=== PATIENT | female | born 1995 | race Caucasian/White ===

== ENCOUNTER 2024-06-25 08:41 | Emergency (ER) | payer OTHER ==
--- NOTE | 2024-06-25 09:49 | EDPHYS ---
Physician Documentation [facility] Name: Kassandra Mejia Age: 28 yrs Sex: Female : 1995 Arrival Date: 06/25/2024 Time: 08:41 Bed 10 Private MD: TERESE Physician Wai Robbins HPI: 06/25 09:45 This 28 yrs old Female presents to ER via Ambulatory with complaints of Sore brigitte Throat. 09:45 The patient presents with sore throat. The patient describes throat pain as constant. brigitte Onset: The symptoms/episode began/occurred 2 day(s) ago. Severity of symptoms: At their worst the symptoms were mild, moderate, in the emergency department the symptoms are unchanged. Modifying factors: The symptoms are alleviated by nothing, the symptoms are aggravated by swallowing. Associated signs and symptoms: The patient has no apparent associated signs or symptoms. The patient has not experienced similar symptoms in the past. 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 - Infectious Disease History:: Denies. - Social history:: Smoking status: Patient reports use of chewing tobacco. Patient denies any tobacco usage or history of. - Family history:: not pertinent. ROS: 09:45 Constitutional: Negative for fever, chills, and weight loss, Eyes: Negative for injury, brigitte pain, redness, and discharge, Neck: Negative for injury, pain, and swelling, Cardiovascular: Negative for chest pain, palpitations, and edema, Respiratory: Negative for shortness of breath, cough, wheezing, and pleuritic chest pain, Abdomen/GI: Negative for abdominal pain, nausea, vomiting, diarrhea, and constipation, Back: Negative for injury and pain, MS/Extremity: Negative for injury and deformity, Skin: Negative for injury, rash, and discoloration, Neuro: Negative for headache, weakness, numbness, tingling, and seizure, 09:45 ENT: Positive for difficulty swallowing, Exam: :45 Constitutional: This is a well developed, well nourished patient who is awake, alert, brigitte and in no acute distress. Head/Face: Normocephalic, atraumatic. Eyes: Pupils equal round and reactive to light, extra-ocular motions intact. Lids and lashes normal. Conjunctiva and sclera are non-icteric and not injected. Cornea within normal limits. Periorbital areas with no swelling, redness, or edema. Neck: Trachea midline, no thyromegaly or masses palpated, and no cervical lymphadenopathy. Supple, full range of motion without nuchal rigidity, or vertebral point tenderness. No Meningismus. Chest/axilla: Normal chest wall appearance and motion. Nontender with no deformity. No lesions are appreciated. Cardiovascular: Regular rate and rhythm with a normal S1 and S2. No gallops, murmurs, or rubs. Normal PMI, no JVD. No pulse deficits. Respiratory: Lungs have equal breath sounds bilaterally, clear to auscultation and percussion. No rales, rhonchi or wheezes noted. No increased work of breathing, no retractions or nasal flaring. Abdomen/GI: Soft, non-tender, with normal bowel sounds. No distension or tympany. No guarding or rebound. No evidence of tenderness throughout. Back: No spinal tenderness. No costovertebral tenderness. Full range of motion. Skin: Warm, dry with normal turgor. Normal color with no rashes, no lesions, and no evidence of cellulitis. MS/ Extremity: Pulses equal, no cyanosis. Neurovascular intact. Full, normal range of motion., bilateral aka Neuro: Awake and alert, GCS 15, oriented to person, place, time, and situation. Cranial nerves II-XII grossly intact. Motor strength 5/5 in all extremities. Sensory grossly intact. Cerebellar exam normal. Normal gait. Psych: Awake, alert, with orientation to person, place and time. Behavior, mood, and affect are within normal limits. 09:45 ENT: Posterior pharynx: Airway: normal, no evidence of obstruction, Tonsils: are normal in appearance, enlarged on the right, enlarged on the left, Uvula: normal, midline, non-edematous, no erythema, swelling, is not appreciated, erythema, is not appreciated, Vital Signs: 09:01 BP 115 / 75; Pulse 98; Resp 17; Temp 97.5; Pulse Ox 100% ; Weight 57.61 kg; Height 5 ll1 ft. 2 in. ; Pain 8/10; 10:15 Pulse 91; Resp 17; Pulse Ox 100% ; ll1 09:01 Body Mass Index 23.23 (57.61 kg, 157.48 cm) [facility] 09:01 Pain Scale: Adult ll1 MDM: 08:47 Medical Screening Exam initiated [facility] 09:47 Differential diagnosis: echovirus infection, sarah-sylvester virus, group A strep brigitte tonsillitis, influenza, laryngitis, pharyngitis, tonsillitis, tracheobronchitis. Data reviewed: vital signs, nurses notes, lab test result(s), Flu: negative. Consideration of Admission/Observation Escalation of care including admission/observation considered. I considered the following discharge prescriptions or medication management in the emergency department Medications were administered in the Emergency Department. See MAR. Test considered but Not performed: Labs: no labs. Care significantly affected by the following chronic conditions: Cancer. 06/25 08:56 Order name: Group A Streptococcus Rapid; Complete Time: 09:42 [facility] 06/25 08:56 Order name: COVID-19 Ag + Flu A+B Ag [facility] 06/25 09:43 Order name: Throat Culture EDMS Administered Medications: No medications were administered Disposition Summary: 06/25/24 09:49 Discharge Ordered Notes: Location: Home [facility] Problem: new [facility] Symptoms: have improved [facility] Condition: Stable brigitte Diagnosis - Acute pharyngitis, unspecified brigitte Followup: [facility] - With: Private Physician - When: 2 - 3 days - Reason: Recheck today's complaints, Continuance of care, Re-evaluation by your physician Discharge Instructions: - Discharge Summary Sheet brigitte - Pharyngitis brigitte - Sore Throat brigitte - Pharyngitis, [place]elk-[id number] [facility] Forms: - Medication Reconciliation Form [facility] - Antibiotic Education brigitte - Prescription Opioid Use brigitte - Patient Portal Instructions [facility] - Leadership Thank You Letter [facility] - Work release form ll1 Prescriptions: - Zithromax Z-Galindo 250 mg Oral Tablet - take 1 tablet ORAL route as directed for 5 days Day 1 - take two (2) tablets brigitte one time. Day 2, 3, 4 , 5 take one (1) tablet once daily.; 6 tablet; Refills: 0, Product Selection Permitted Signatures: Dispatcher [employer] EDMS Rosendo, Wai, MD MD brigitte Job, Lynsay, RN RN ll1
--- NOTE | 2024-06-25 09:49 | ER ---
Nurse's Notes [facility] Name: Kassandra Mejia Age: 28 yrs Sex: Female : 1995 Arrival Date: 06/25/2024 Time: 08:41 Bed 10 Private MD: Diagnosis: Acute pharyngitis, unspecified Presentation: 06/25 09:01 Chief complaint: Patient states: Sore throat for 3 days. Coronavirus screen: Client ll1 denies travel out of the [place] in the last 14 days. Ebola Screen: Patient denies travel to an Ebola-affected area in the 21 days before illness onset. Initial Sepsis Screen: Does the patient meet any 2 criteria? No. Patient's initial sepsis screen is negative. Does the patient have a suspected source of infection? No. Patient's initial sepsis screen is negative. Risk Assessment: Do you want to hurt yourself or someone else? Patient reports no desire to harm self or others. Onset of symptoms was June 23, 2024. 09:01 Method Of Arrival: Ambulatory 1 09:01 Acuity: KAYLI 4 ll1 Triage Assessment: 09:01 General: Appears uncomfortable, Behavior is calm, cooperative, appropriate for age. ll1 Pain: Complains of pain in throat Quality of pain is described as aching. EENT: Reports pain when swallowing. 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 - Infectious Disease History:: Denies. - Social history:: Smoking status: Patient reports use of chewing tobacco. Patient denies any tobacco usage or history of. - Family history:: not pertinent. Screenin:12 [facility] ED Fall Risk Assessment (Adult) History of falling in the last 3 months, ll1 including since admission No falls in past 3 months (0 pts) Confusion or Disorientation No (0 pts) Intoxicated or Sedated No (0 pts) Impaired Gait No (0 pts) Mobility Assist Device Used No (0 pt) Altered Elimination No (0 pt) Score/Fall Risk Level 0 - 2 = Low Risk Maintained a safe environment, Hourly rounding (assess needs \T\ fall precautionary measures) done. Abuse screen: Denies threats or abuse. Nutritional screening: No deficits noted. Tuberculosis screening: No symptoms or risk factors identified. Assessment: 10:13 Respiratory: Airway is patent Respiratory effort is even, unlabored, Breath sounds are ll1 clear bilaterally. EENT: Throat is reddened. 10:14 Reassessment: No changes from previously documented assessment. Patient and/or family ll1 updated on plan of care and expected duration. Pain level reassessed. Patient is alert, oriented x 3, equal unlabored respirations, skin warm/dry/pink. Patient states feeling better. Vital Signs: 09:01 BP 115 / 75; Pulse 98; Resp 17; Temp 97.5; Pulse Ox 100% ; Weight 57.61 kg; Height 5 ll1 ft. 2 in. ; Pain 8/10; 10:15 Pulse 91; Resp 17; Pulse Ox 100% ; ll1 09:01 Body Mass Index 23.23 (57.61 kg, 157.48 cm) 1 09:01 Pain Scale: Adult ll ED Course: 08:45 Patient arrived in ED. mr 08:47 Wai Robbins MD is Attending Physician. [facility] 09:00 Arm band placed on. 1 09:01 Triage completed. ll1 09:05 Patient placed in an exam room, on a stretcher. ll1 09:16 COVID-19 Ag + Flu A+B Ag Sent. bc6 09:16 Group A Streptococcus Rapid Sent. bc6 09:16 COVID swab sent to lab. Flu and/or RSV swab sent to lab. Strep swab sent to lab. [facility] 10:13 No provider procedures requiring assistance completed. Patient did not have IV access [facility] during this emergency room visit. 10:14 Patient has correct armband on for positive identification. Bed in low position. 1 Provided Education on: finish all prescribed antibiotics. Administered Medications: No medications were administered Medication: 10:14 VIS not applicable for this client. 1 Outcome: 09:49 Discharge ordered by . [facility] 10:13 Discharged to home ambulatory, 1 10:13 Condition: stable 10:13 Discharge instructions given to patient, family, Instructed on discharge instructions, follow up and referral plans. medication usage, Demonstrated understanding of instructions, follow-up care, medications, Prescriptions given X 1, 10:15 Patient left the ED. ll1 Signatures: Wai Robbins MD MD cha Rivera, Mary, [facility] [address] RN RN ll1 Lexie Carrillo 6 Corrections: (The following items were deleted from the chart) 09:05 09:01 BP 115 / 75; Pulse 98bpm; Resp 17bpm; Pulse Ox 100%; Temp 97.5F; 58.97 kg; Height ll1 5 ft. 2 in.; BMI: 23.7; Pain 8/10, Adult; ll1
[2024-06-25 10:03] LABS: Influenza A Ag Negative; Influenza B Ag Negative; SARS-CoV-2 Antigen Rapid Res Negative (Negative)
[2024-06-25 10:19] VITALS: BP 115/75; TEMP 97.5; O2SAT 100
== END 2024-06-25 10:15 | disposition home or self-care (01) ==
LOC: ER 08:41
DX: J02.9 Acute pharyngitis, unspecified (principal); F17.220 Nicotine dependence, chewing tobacco, uncomplicated; Z11.52 Encounter for screening for COVID-19; Z98.82 Breast implant status
CPT/HCPCS: 36415; 87070; 87428; 99283

== ENCOUNTER 2024-07-02 23:22 | Emergency (ER) | payer OTHER ==
--- NOTE | 2024-07-02 23:36 | EDPHYS ---
Physician Documentation [facility] Name: Kassandra Mejia Age: 28 yrs Sex: Female : 1995 Arrival Date: 07/02/2024 Time: 23:22 Bed IW1 Private MD: ED Physician Sher Kraft HPI: 07/02 23:37 This 28 yrs old Female presents to ER via Unassigned with complaints of Toothache. ec2 23:37 Patient arrives today for evaluation of dentalgia. Patient reports right upper dental ec2 pain. Reports that she has been experiencing worsening pain for the past several weeks, is expected to have a dental procedure in the next coming days with her dentist to have multiple teeth pulled.. 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 Last tetanus immunization: unknown. - Infectious Disease History:: Denies. - Social history:: Smoking status: Patient denies any tobacco usage or history of. ROS: 23:44 Constitutional: as per hpi ec2 Exam: 23:44 Constitutional: GEN: NAD Head: atraumatic Eyes: EOMI Ears: External ears are normal. ec2 Mouth: Significant dental caries noted throughout, right upper teeth with tenderness, no overlying facial swelling CV: regular rate LUNGS: no respiratory distress ABD: non-distended SKIN: no evidence of rashes MSK: no evidence of trauma Vital Signs: 23:20 BP 118 / 87; Pulse 90; Resp 18; Temp 98.7; Pulse Ox 100% ; Weight 57.61 kg; Height 5 kb3 ft. 2 in. ; Pain 10/10; 23:20 Body Mass Index 23.23 (57.61 kg, 157.48 cm) kb3 23:20 Pain Scale: Adult kb3 MDM: 23:27 Medical Screening Exam initiated ec2 23:44 Data reviewed: vital signs, nurses notes. ED course: Patient arrives today for ec2 dentalgia. Examination yields dental findings as above. Will treat for possible dental infection with Augmentin, treat with pain medications. DDx include processes such as osteomyelitis, dental abscess, maxillary abscess, dentalgia. 07/02 23:34 Order name: Raphael. Order: gauze soaked in lidocaine to affected area; Complete Time: ec2 23:50 Administered Medications: 23:50 Drug: HYDROcodone-acetaminophen PO 5 mg-325 mg 2 tabs PO once Route: PO; kb3 23:54 Follow up: Response: No adverse reaction; Medication Administered at Departure kb3 23:50 Drug: Viscous Lidocaine Mucous Membrane Liquid (4 %) 10 ml Mucous Membrane once Route: kb3 Mucous Membrane; 23:54 Follow up: Response: No adverse reaction; Pain is decreased; Medication administered at kb3 discharge. 23:50 Drug: Amoxicillin-Clavulanate PO 875 mg PO once Route: PO; kb3 23:54 Follow up: Response: No adverse reaction; Medication administered at discharge. kb3 Disposition Summary: 07/02/24 23:35 Discharge Ordered Notes: Location: Home ec2 Condition: Stable ec2 Diagnosis - Dental caries, unspecified ec2 Followup: ec2 - With: Private Physician - When: - Reason: Re-evaluation by your physician Discharge Instructions: - Discharge Summary Sheet ec2 - Dental Pain ec2 Forms: - Medication Reconciliation Form ec2 - Antibiotic Education ec2 - Prescription Opioid Use ec2 - Patient Portal Instructions ec2 - Leadership Thank You Letter ec2 Prescriptions: - Acetaminophen-Codeine 300mg-30mg tablets - take 1 tablet ORAL route every 4 hours; 15 tablet; Refills: 0, Product ec2 Selection Permitted - Augmentin 875-125 mg Oral Tablet - take 1 tablet ORAL route every 12 hours for 10 days; 20 tablet; Refills: 0, ec2 Product Selection Permitted Signatures: Maeve De Leon RN RN kb3 Sher Kraft MD MD ec2
[2024-07-02] MEDS ORDERED: AMOX/K CLAV 875 MG TAB ONE (23:46)
[2024-07-02] MEDS ORDERED: HYDROCODONE/APAP 5/325 MG TAB ONE (23:47)
[2024-07-02] MEDS ORDERED: LIDOCAINE VISCOUS 2% 10ML ORAL SOLN ONE (23:47)
--- NOTE | 2024-07-02 23:57 | ER ---
Nurse's Notes [facility] Name: Kassandra Mejia Age: 28 yrs Sex: Female : 1995 Arrival Date: 07/02/2024 Time: 23:22 Bed IW1 Private MD: Diagnosis: Dental caries, unspecified Presentation: 07/02 23:20 Chief complaint: Patient states: Left upper jaw pain. Pt has multiple missing and kb3 carious teeth after chemo and radiation. Pt is currently working with oral surgeon for multiple dental issues. 23:20 Coronavirus screen: Vaccine status: Patient reports being unvaccinated. Client denies kb3 travel out of the [place] in the last 14 days. Ebola Screen: Patient negative for fever greater than or equal to 101.5 degrees Fahrenheit, and additional compatible Ebola Virus Disease symptoms Patient denies exposure to infectious person. Patient denies travel to an Ebola-affected area in the 21 days before illness onset. Initial Sepsis Screen: Does the patient meet any 2 criteria? No. Patient's initial sepsis screen is negative. Does the patient have a suspected source of infection? No. Patient's initial sepsis screen is negative. Risk Assessment: Do you want to hurt yourself or someone else? Patient reports no desire to harm self or others. Onset of symptoms was July 02, 2024. 23:20 Method Of Arrival: Ambulatory 3 23:20 Acuity: KAYLI 4 kb3 Triage Assessment: 23:38 General: Appears in no apparent distress. uncomfortable, Behavior is calm, cooperative. kb3 Pain: Complains of pain in upper right third molar, upper right second molar and upper right first molar Pain does not radiate. Pain currently is 10 out of 10 on a pain scale. Quality of pain is described as sharp, shooting. EENT: Reports pain in upper right third molar, upper right second molar and upper right first molar. 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 Last tetanus immunization: unknown. - Infectious Disease History:: Denies. - Social history:: Smoking status: Patient denies any tobacco usage or history of. Screenin:40 [facility] ED Fall Risk Assessment (Adult) History of falling in the last 3 months, kb3 including since admission No falls in past 3 months (0 pts) Confusion or Disorientation No (0 pts) Intoxicated or Sedated No (0 pts) Impaired Gait No (0 pts) Mobility Assist Device Used No (0 pt) Altered Elimination No (0 pt) Score/Fall Risk Level 0 - 2 = Low Risk Oriented to surroundings. Abuse screen: Denies threats or abuse. Denies injuries from another. Nutritional screening: No deficits noted. Tuberculosis screening: No symptoms or risk factors identified. Assessment: 23:40 Reassessment: No changes from previously documented assessment. Reassessment: See kb3 triage assessment. Vital Signs: 23:20 BP 118 / 87; Pulse 90; Resp 18; Temp 98.7; Pulse Ox 100% ; Weight 57.61 kg; Height 5 kb3 ft. 2 in. ; Pain 10/10; 23:20 Body Mass Index 23.23 (57.61 kg, 157.48 cm) kb3 23:20 Pain Scale: Adult kb3 ED Course: 23:22 Patient arrived in ED. am2 23:24 Sher Kraft MD is Attending Physician. ec2 23:38 Triage completed. kb3 23:38 Arm band placed on right wrist. kb3 23:40 Patient has correct armband on for positive identification. Provided Education on: POC. kb3 23:40 No provider procedures requiring assistance completed. Patient did not have IV access kb3 during this emergency room visit. Administered Medications: 23:50 Drug: HYDROcodone-acetaminophen PO 5 mg-325 mg 2 tabs PO once Route: PO; kb3 23:54 Follow up: Response: No adverse reaction; Medication Administered at Departure kb3 23:50 Drug: Viscous Lidocaine Mucous Membrane Liquid (4 %) 10 ml Mucous Membrane once Route: kb3 Mucous Membrane; 23:54 Follow up: Response: No adverse reaction; Pain is decreased; Medication administered at kb3 discharge. 23:50 Drug: Amoxicillin-Clavulanate PO 875 mg PO once Route: PO; kb3 23:54 Follow up: Response: No adverse reaction; Medication administered at discharge. kb3 Medication: 23:40 VIS not applicable for this client. kb3 Outcome: 23:35 Discharge ordered by . ec2 23:56 Discharged to home ambulatory, kb3 23:56 Condition: stable 23:56 Discharge instructions given to patient, Instructed on discharge instructions, follow up and referral plans. medication usage, Demonstrated understanding of instructions, follow-up care, medications, Prescriptions given X 2, 23:56 Patient left the ED. kb3 Signatures: Page Hwang am2 Maeve De Leon, RN RN kb3 Sher Kratf MD MD ec2 Corrections: (The following items were deleted from the chart) 23:40 23:20 BP 118 / 87; Pulse 0bpm; Resp 18bpm; Pulse Ox 100%; Temp 98.7F; 57.61 kg; Height kb3 5 ft. 2 in.; BMI: 23.2; Pain 10/10, Adult; kb3
== END 2024-07-02 23:56 | disposition home or self-care (01) ==
LOC: ER 23:22
DX: K02.9 Dental caries, unspecified (principal)
CPT/HCPCS: 99283

== ENCOUNTER 2024-07-10 06:28 | Emergency (ER) | payer OTHER ==
--- NOTE | 2024-07-10 06:43 | EDPHYS ---
Physician Documentation [facility] Name: Kassandra Mejia Age: 28 yrs Sex: Female : 1995 Arrival Date: 07/10/2024 Time: 06:28 Bed DX3 Private MD: TERESE Physician Wai Robbins HPI: 07/10 06:40 This 28 yrs old Female presents to ER via Unassigned with complaints of brigitte Toothache. 06:40 The patient presents with broken tooth/teeth, pain. The problem is located in the lower brigitte left second molar. Onset: The symptoms/episode began/occurred 7 day(s) ago. Duration: The symptoms are continuous, and are steadily getting worse. Modifying factors: The symptoms are alleviated by nothing, the symptoms are aggravated by nothing. Associated signs and symptoms: The patient has no apparent associated signs or symptoms. Severity of symptoms: At their worst the symptoms were moderate, in the emergency department the symptoms are unchanged. The patient has experienced similar episodes in the past, multiple times. 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 Flu vaccine is not up to date. - Infectious Disease History:: Denies. - Family history:: not pertinent. - Social history:: Smoking status: Patient reports use of chewing tobacco. ROS: 06:40 Constitutional: Negative for fever, chills, and weight loss, Eyes: Negative for injury, brigitte pain, redness, and discharge, Neck: Negative for injury, pain, and swelling, Cardiovascular: Negative for chest pain, palpitations, and edema, Respiratory: Negative for shortness of breath, cough, wheezing, and pleuritic chest pain, Abdomen/GI: Negative for abdominal pain, nausea, vomiting, diarrhea, and constipation, Back: Negative for injury and pain, MS/Extremity: Negative for injury and deformity, Skin: Negative for injury, rash, and discoloration, Neuro: Negative for headache, weakness, numbness, tingling, and seizure, Psych: Negative for depression, anxiety, suicide ideation, homicidal ideation, and hallucinations, Allergy/Immunology: Negative for hives, rash, and allergies, Endocrine: Negative for neck swelling, polydipsia, polyuria, polyphagia, and marked weight changes, Hematologic/Lymphatic: Negative for swollen nodes, abnormal bleeding, and unusual bruising, 06:40 ENT: Positive for Teeth pain Exam: 06:40 Constitutional: This is a well developed, well nourished patient who is awake, alert, brigitte and in no acute distress. Head/Face: Normocephalic, atraumatic. Eyes: Pupils equal round and reactive to light, extra-ocular motions intact. Lids and lashes normal. Conjunctiva and sclera are non-icteric and not injected. Cornea within normal limits. Periorbital areas with no swelling, redness, or edema. Neck: Trachea midline, no thyromegaly or masses palpated, and no cervical lymphadenopathy. Supple, full range of motion without nuchal rigidity, or vertebral point tenderness. No Meningismus. Chest/axilla: Normal chest wall appearance and motion. Nontender with no deformity. No lesions are appreciated. Cardiovascular: Regular rate and rhythm with a normal S1 and S2. No gallops, murmurs, or rubs. Normal PMI, no JVD. No pulse deficits. Respiratory: Lungs have equal breath sounds bilaterally, clear to auscultation and percussion. No rales, rhonchi or wheezes noted. No increased work of breathing, no retractions or nasal flaring. Abdomen/GI: Soft, non-tender, with normal bowel sounds. No distension or tympany. No guarding or rebound. No evidence of tenderness throughout. Back: No spinal tenderness. No costovertebral tenderness. Full range of motion. Skin: Warm, dry with normal turgor. Normal color with no rashes, no lesions, and no evidence of cellulitis. MS/ Extremity: Pulses equal, no cyanosis. Neurovascular intact. Full, normal range of motion., bilateral aka Neuro: Awake and alert, GCS 15, oriented to person, place, time, and situation. Cranial nerves II-XII grossly intact. Motor strength 5/5 in all extremities. Sensory grossly intact. Cerebellar exam normal. Normal gait. Psych: Awake, alert, with orientation to person, place and time. Behavior, mood, and affect are within normal limits. 06:40 ENT: Dental exam: dental caries, gum swelling, pain, that is mild, specifically in the lower left second molar (#18), Vital Signs: 06:42 BP 132 / 76; Pulse 82; Resp 16; Temp 97.8; Pulse Ox 100% ; Pain 10/10; vc1 06:42 Pain Scale: Adult vc1 MDM: 06:32 Medical Screening Exam initiated brigitte 06:41 Differential diagnosis: dental caries, gingivitis, dental abscess, aphthous ulcers, brigitte acute necrotizing ulcerative gingivitis. Data reviewed: vital signs, nurses notes. Consideration of Admission/Observation Escalation of care including admission/observation considered. I considered the following discharge prescriptions or medication management in the emergency department Medications were administered in the Emergency Department. See MAR. Independent interpretation of the following test(s) in the Emergency Department. Administered Medications: 06:59 Drug: Ketorolac IM 60 mg IM once Route: IM; Site: right ventrogluteal; vc1 06:59 Follow up: Response: Medication administered at discharge. vc1 06:59 Drug: Ondansetron Oral Disintegrating Tablet Oral Disintegrating Tablet 4 mg PO once vc1 Route: PO; 06:59 Follow up: Response: Medication administered at discharge. vc1 06:59 Drug: Hydrocodone-Acetaminophen PO (7.5 mg-325 mg) 1 tabs PO once Route: PO; vc1 06:59 Follow up: Response: Medication administered at discharge. vc1 Disposition Summary: 07/10/24 06:43 Discharge Ordered Notes: Location: Home brigitte Problem: new brigitte Symptoms: have improved brigitte Condition: Stable brigitte Diagnosis - Dental root caries brigitte - Dental caries, unspecified brigitte Followup: brigitte - With: Private Physician - When: 2 - 3 days - Reason: Recheck today's complaints, Continuance of care, Re-evaluation by your physician Followup: brigitte - With: Sarmad Reilly DDS - When: 2 - 3 days - Reason: Recheck today's complaints, Continuance of care, Re-evaluation by your physician Discharge Instructions: - Discharge Summary Sheet brigitte - Dental Caries, Adult brigitte - Dental Pain brigitte - Dental Pain, [id number] brigitte - Diet and Dental Disease brigitte - Dental Caries, Adult, [id number] [facility] Forms: - Medication Reconciliation Form brigitte - Antibiotic Education brigitte - Prescription Opioid Use brigitte - Patient Portal Instructions [facility] - Leadership Thank You Letter [facility] Prescriptions: - ondansetron 4 mg Oral Tablet,disintegrating - take 1 tablet ORAL route every 6-8 hours; 20 tablet; Refills: 0, Product [facility] Selection Permitted - Ibuprofen 600 mg Oral Tablet - take 1 tablet ORAL route every 6 hours As needed take with food; 30 tablet; [facility] Refills: 0, Product Selection Permitted - Tylenol-Codeine #3 300mg-30mg Oral tablet - take 1 tablet ORAL route every 4 hours As needed; 16 tablet; Refills: 0, [facility] Product Selection Permitted Signatures: Wai Robbins MD MD cha Calcote, Vanessa, RN RN vc1
[2024-07-10] MEDS ORDERED: ONDANSETRON 4 MG (ODT) TAB ONE (06:52)
[2024-07-10] MEDS ORDERED: KETOROLAC 30 MG/ML INJ ONE (06:52)
[2024-07-10] MEDS ORDERED: HYDROCODONE/APAP 7.5/325 MG TAB ONE (06:53)
--- NOTE | 2024-07-10 07:01 | ER ---
Nurse's Notes [facility] Name: Kassandra Mejia Age: 28 yrs Sex: Female : 1995 Arrival Date: 07/10/2024 Time: 06:28 Bed DX3 Private MD: Diagnosis: Dental root caries;Dental caries, unspecified Presentation: 07/10 06:42 Chief complaint: Patient states: broken back left wisdom tooth causing pain. vc1 Coronavirus screen: Client denies travel out of the [place] in the last 14 days. At this time, the client does not indicate any symptoms associated with coronavirus-19. Ebola Screen: Patient negative for fever greater than or equal to 101.5 degrees Fahrenheit, and additional compatible Ebola Virus Disease symptoms Patient denies exposure to infectious person. Patient denies travel to an Ebola-affected area in the 21 days before illness onset. No symptoms or risks identified at this time. Initial Sepsis Screen: Does the patient meet any 2 criteria? No. Patient's initial sepsis screen is negative. Does the patient have a suspected source of infection? No. Patient's initial sepsis screen is negative. Risk Assessment: Do you want to hurt yourself or someone else? Patient reports no desire to harm self or others. Onset of symptoms was July 10, 2024 at 03:30. 06:42 Method Of Arrival: Ambulatory vc1 06:42 Acuity: KAYLI 4 vc1 Triage Assessment: 06:44 General: Appears in no apparent distress. uncomfortable, slender, Behavior is calm, vc1 cooperative, appropriate for age. Pain: Complains of pain in lower left third molar Pain does not radiate. Pain currently is 10 out of 10 on a pain scale. Quality of pain is described as sharp, pulsating, Pain began suddenly, 3 hours ago. Is continuous. EENT: Reports pain in lower left third molar. Neuro: Level of Consciousness is awake, alert, obeys commands, Oriented to person, place, time, situation, Appropriate for age. Cardiovascular: Heart tones S1 S2 present Capillary refill < 3 seconds Patient's skin is warm and dry. Respiratory: Airway is patent Respiratory effort is even, unlabored, Respiratory pattern is regular, symmetrical, Breath sounds are clear bilaterally. GI: No deficits noted. No signs and/or symptoms were reported involving the gastrointestinal system. : No deficits noted. No signs and/or symptoms were reported regarding the genitourinary system. Derm: Skin is intact, is healthy with good turgor, Skin is dry, Skin is normal, Skin temperature is warm. Musculoskeletal: Circulation, motion, and sensation intact. Range of motion: intact in all extremities. 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 Flu vaccine is not up to date. - Infectious Disease History:: Denies. - Family history:: not pertinent. - Social history:: Smoking status: Patient reports use of chewing tobacco. Screenin:46 [facility] ED Fall Risk Assessment (Adult) History of falling in the last 3 months, vc1 including since admission No falls in past 3 months (0 pts) Confusion or Disorientation No (0 pts) Intoxicated or Sedated No (0 pts) Impaired Gait No (0 pts) Mobility Assist Device Used No (0 pt) Altered Elimination No (0 pt) Score/Fall Risk Level 0 - 2 = Low Risk Oriented to surroundings, Maintained a safe environment, Educated pt \T\ family on fall prevention, incl call for assistance when getting out of bed. Abuse screen: Denies injuries from another. Nutritional screening: No deficits noted. Tuberculosis screening: No symptoms or risk factors identified. Vital Signs: 06:42 BP 132 / 76; Pulse 82; Resp 16; Temp 97.8; Pulse Ox 100% ; Pain 10/10; vc1 06:42 Pain Scale: Adult vc1 ED Course: 06:31 Patient arrived in ED. [email or web address] 06:32 Wai Robbins MD is Attending Physician. brigitte 06:42 Cecy Salazar RN is Primary Nurse. vc1 06:42 Sarmad Reilly DDS is Referral Physician. brigitte 06:43 Triage completed. vc1 06:44 Arm band placed on right wrist. vc1 06:46 No provider procedures requiring assistance completed. Patient did not have IV access vc1 during this emergency room visit. 07:00 treated in diagnostic chair. Provided Education on: tooth care. vc1 Administered Medications: 06:59 Drug: Ketorolac IM 60 mg IM once Route: IM; Site: right ventrogluteal; vc1 06:59 Follow up: Response: Medication administered at discharge. vc1 06:59 Drug: Ondansetron Oral Disintegrating Tablet Oral Disintegrating Tablet 4 mg PO once vc1 Route: PO; 06:59 Follow up: Response: Medication administered at discharge. vc1 06:59 Drug: Hydrocodone-Acetaminophen PO (7.5 mg-325 mg) 1 tabs PO once Route: PO; vc1 06:59 Follow up: Response: Medication administered at discharge. vc1 Medication: 06:46 VIS not applicable for this client. vc1 Outcome: 06:43 Discharge ordered by . brigitte 07:00 Discharged to home ambulatory, vc1 07:00 Condition: stable 07:00 Discharge instructions given to patient, Instructed on discharge instructions, follow up and referral plans. medication usage, Demonstrated understanding of instructions, follow-up care, medications, Prescriptions given X 3, 07:01 Patient left the ED. vc1 Signatures: Wai Robbins MD MD cha Jeffries, Jennifer jj6 Calcote, Vanessa, RN RN vc1
[2024-07-10 07:16] VITALS: BP 132/76; TEMP 97.8; O2SAT 100
== END 2024-07-10 07:01 | disposition home or self-care (01) ==
LOC: ER 06:28
DX: K02.7 Dental root caries (principal); F17.220 Nicotine dependence, chewing tobacco, uncomplicated; Z98.82 Breast implant status
CPT/HCPCS: 96372; 99284; Q0162

== ENCOUNTER 2024-08-19 18:37 | Emergency (ER) | payer OTHER, SELFPAY ==
--- NOTE | 2024-08-19 20:35 | ER ---
Nurse's Notes [facility] Name: Kassandra Mejia Age: 28 yrs Sex: Female : 1995 Arrival Date: 08/19/2024 Time: 18:37 Bed IW5 Private MD: Diagnosis: Presentation: 08/19 19:36 Chief complaint: Patient states: TOOTH ACHE , RIGHT UPPER JAW FOR OVER A MONTH. 1 Coronavirus screen: Client denies travel out of the [place] in the last 14 days. Ebola Screen: No symptoms or risks identified at this time. Initial Sepsis Screen: Does the patient meet any 2 criteria? No. Patient's initial sepsis screen is negative. Does the patient have a suspected source of infection? No. Patient's initial sepsis screen is negative. Risk Assessment: Do you want to hurt yourself or someone else? Patient reports no desire to harm self or others. Onset of symptoms was August 19, 2024. 19:36 Method Of Arrival: Ambulatory [facility] 19:36 Acuity: KAYLI 4 ha1 Triage Assessment: 19:37 General: Appears uncomfortable, Behavior is cooperative. Pain: Complains of pain in ha1 right jaw Pain currently is 10 out of 10 on a pain scale. Quality of pain is described as throbbing. Neuro: Level of Consciousness is awake, alert, obeys commands, Oriented to person, place, time, situation. Cardiovascular: Capillary refill < 3 seconds Patient's skin is warm and dry. Respiratory: Airway is patent Respiratory effort is even, unlabored, Respiratory pattern is regular, symmetrical. Musculoskeletal: Circulation, motion, and sensation intact. Range of motion: intact in all extremities. Historical: - Allergies: 19:37 Hydroxyzine; ha1 19:37 metronidazole; ha1 - Home Meds: 19:37 Eliquis 5 mg Oral tablet 1 tab 2 times per day for Pulmonary Thromboembolism [Active]; ha1 - PMHx: 19:37 breast CA-mastecomy L; PE; ha1 - PSHx: 19:37 B implants; ha1 - Immunization history:: Adult Immunizations up to date. - Infectious Disease History:: Denies. - Social history:: Smoking status: Patient denies any tobacco usage or history of. Assessment: 20:34 General: Per registration staff, pt left ER. kl Vital Signs: 19:36 BP 129 / 94; Pulse 87; Resp 18 S; Temp 98.9; Pulse Ox 100% on R/A; Weight 57.61 kg; ha1 Height 5 ft. 2 in. ; 19:36 Body Mass Index 23.23 (57.61 kg, 157.48 cm) ha1 ED Course: 18:40 Patient arrived in ED. cj3 19:19 [facility]ia Canales PA [facility]. cp 19:19 Wai Robbins MD is Attending Physician. cp 19:37 Triage completed. ha1 20:34 Patient's name was called from ER lobby. No response. Unable to locate patient. Will kl disposition as left without being seen by a provider. Administered Medications: No medications were administered Outcome: 20:35 Eloped from waiting room, before seeing physician morgan 20:35 Patient left the ED. Signatures: Ericka Kaiser RN Wai Bullock PA PA cp Ayala, Heidy, RN RN 1 Matilda Montes 3
[2024-08-19 20:59] VITALS: BP 129/94; TEMP 98.9; O2SAT 100
--- NOTE | 2024-08-20 20:35 | EDPHYS ---
Physician Documentation [facility] Name: Kassandra Mejia Age: 28 yrs Sex: Female : 1995 Arrival Date: 08/19/2024 Time: 18:37 Bed IW5 Private MD: ED Physician Wai Robbins Historical: - Allergies: 08/19 19:37 Hydroxyzine; ha1 19:37 metronidazole; ha1 - Home Meds: 19:37 Eliquis 5 mg Oral tablet 1 tab 2 times per day for Pulmonary Thromboembolism [Active]; ha1 - PMHx: 19:37 breast CA-mastecomy L; PE; ha1 - PSHx: 19:37 B implants; ha1 - Immunization history:: Adult Immunizations up to date. - Infectious Disease History:: Denies. - Social history:: Smoking status: Patient denies any tobacco usage or history of. Vital Signs: 19:36 BP 129 / 94; Pulse 87; Resp 18 S; Temp 98.9; Pulse Ox 100% on R/A; Weight 57.61 kg; ha1 Height 5 ft. 2 in. ; 19:36 Body Mass Index 23.23 (57.61 kg, 157.48 cm) ha1 MDM: 19:34 Medical Screening Exam initiated brigitte 20:35 ED course: patient left ED prior to provider evaluation. cp Administered Medications: No medications were administered Disposition Summary: 08/19/24 20:35 Eloped Notes: Disposition: post triage evaluation and consult kl Reason: unknown kl Condition: Stable kl Addendum: 08/22/2024 22:45 Co-signature as Attending Physician, Wai Robbins MD I agree with the assessment and c carmona plan of care. Signatures: Ericka Kaiser RN RN kl Anderson, Corey, MD MD cha Page, Corey, PA PA cp Kari Ray RN RN ha1 Corrections: (The following items were deleted from the chart) 08/20 17:36 08/19 20:00 ED course: patient left ED prior to provider evaluation. cp cp
== END 2024-08-19 20:35 | disposition left against medical advice (07) ==
LOC: ER 18:37
DX: Z53.21 Procedure and treatment not carried out due to patient leaving prior to being seen by health care provider (principal)
CPT/HCPCS: 99281